=== PATIENT | male | born 1995 | race Caucasian/White ===

== ENCOUNTER 2018-07-15 11:57 | Inpatient (IN) ==
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
[2018-07-15 12:48] LABS: Baso % (Auto) 0.2 % (0.0-2.0); Eos % (Auto) 0.1 % (0.0-4.0); Hematocrit 49.8 % (39.0-51.0); Hemoglobin 16.8 gm/dL (13.0-17.0); Lymph # (Auto) 1.5 th/mm3 (1.0-4.8); Lymph % (Auto) 11.3 % (9.0-44.0); Mean Corpuscular HGB Conc 33.8 % (32.0-36.0); Mean Corpuscular Hemoglobin 30.5 pg (27.0-34.0); Mean Corpuscular Volume 90.3 fL (80.0-100.0); Mean Platelet Volume 7.8 fL (7.0-11.0); Mono # (Auto) 1.3 th/mm3 (0.0-0.9); Mono % (Auto) 9.7 % (0.0-8.0); Neut # (Auto) 10.7 th/mm3 (1.8-7.7); Neut % (Auto) 78.7 % (16.0-70.0); Platelet Count 270 th/mm3 (150-450); Red Blood Count 5.51 mil/mm3 (4.50-5.90); Red Cell Distribution Width 12.7 % (11.6-17.2); White Blood Count 13.6 th/mm3 (4.0-11.0)
--- NOTE | 2018-07-15 12:52 | XR ---
EXAM DATE: 07/15/2018 12:43 PM EDT AGE/SEX: 22 years / Male INDICATIONS: Right elbow pain. Posterior pain and abrasions. Patient fell today. CLINICAL DATA: This is the patient's initial encounter. Patient reports that signs and symptoms have been present for 1 day and indicates a pain score of 3/10. MEDICAL/SURGICAL HISTORY: None. None. COMPARISON: No prior exams available for comparison. FINDINGS: Bony structures are intact and in normal alignment. Joints are intact without dislocation or signifi cant arthropathy. Osseous density is normal. Soft tissues are swollen over the proximal ulna. No ra diopaque foreign bodies seen. CONCLUSION: No acute bony abnormality. Soft tissue swelling over the proximal ulna. Electronically signed by: Rafa Summers MD 07/15/2018 12:50 PM EDT
[2018-07-15 13:17] LABS: Alanine Aminotransferase 93 U/L (9-52); Albumin 4.9 g/dL (3.4-5.0); Anion Gap 10 meq/L (5-15); Aspartate Aminotransferase 255 U/L (15-39); Blood Urea Nitrogen 8 mg/dL (7-18); Calcium 9.7 mg/dL (8.5-10.1); Carbon Dioxide 26.8 meq/L (21.0-32.0); Chloride 101 meq/L (98-107); Glomerular Filtration Rate Greater Than 89 mL/min (>89); Glucose,Random 96 mg/dL (74-106); Potassium 3.6 meq/L (3.5-5.1); Sodium 138 meq/L (136-145)
[2018-07-15 13:26] LABS: Alkaline Phosphatase 62 U/L (45-117); Thyroid Stimulating Hormone 0.396 uIU/mL (0.358-3.740)
[2018-07-15 18:04] LABS: Amphetamine Screen,Urine Neg (Neg); Barbiturate Screen,Urine Neg (Neg); Cannabinoid Screen,Urine Pos (Neg); Cocaine Screen,Urine Neg (Neg)
[2018-07-15 18:05] LABS: Bilirubin,Urine Negative (Negative); Clarity,Urine Clear (Clear); Color,Urine Yellow (Yellw/Straw); Glucose,Urine (UA) Negative (Negative); Leukocyte Esterase,Urine Negative (Negative); Mucus,Urine Few /lpf (Occasional); Nitrite,Urine Negative (Negative); Specific Gravity,Urine 1.005 (1.002-1.035)
[2018-07-15 18:10] LABS: Opiate Screen,Urine Neg (Neg)
[2018-07-15] MEDS ORDERED: Aluminum/Magnesium/Simethacone Susp 30 ML UDC PO PRN (18:29)
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
[2018-07-15] MEDS ORDERED: Haloperidol Inj 5 MG/ML Ampul IM ONE (19:30)
[2018-07-15] MEDS ORDERED: Haloperidol Inj 5 MG/ML Ampul ONE (19:40)
[2018-07-16 10:43] LABS: Calcium 9.6 mg/dL (8.5-10.1); Carbon Dioxide 30.4 meq/L (21.0-32.0); Potassium 3.5 meq/L (3.5-5.1)
[2018-07-16 10:46] LABS: Chol/HDL Ratio 2.22 Ratio; HDL Cholesterol 59.2 mg/dL (40.0-60.0)
[2018-07-16] MEDS ORDERED: Aluminum/Magnesium/Simethacone Susp 30 ML UDC PO PRN ×2 (12:12→12:31)
[2018-07-16] MEDS ORDERED: Acetaminophen 325 MG Tablet PO PRN (12:12)
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
[2018-07-16] MEDS: Haloperidol 5 MG Tablet PO SCH ×2 (18:29→22:03)
[2018-07-17] MEDS: Haloperidol 5 MG Tablet PO SCH ×2 (08:22→21:17)
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
[2018-07-18] MEDS: Haloperidol 5 MG Tablet PO SCH (08:20)
--- NOTE | 2018-07-18 11:14 | P.PNPSY ---
Subjective Remarks: Pt seen and discussed with staff. He has been compliant with medications. He expressed remorse, but little insight into substance abuse. No overt psychosis or internal preoccupation. He admits to heavy substance use and experimentation. During rounds, pt experiences a dystonic reaction (tongue protrusion). He was given cogentin 2mg IM which relieved symptoms without recurrence. Mental Status Examination Appearance: Appropriate Consciousness: Alert Orientation: x4 Motor Activity: Normal gait Speech: Unremarkable, Hesitant Language: Adequate (For the most part) Fund of Knowledge: Adequate Attention and Concentration: Easily distracted Memory: Unremarkable Mood: Other (Euthymic to mildly dysphoric and anxious) Affect: Other (Slight increased range and intensity) Thought Process & Associations: Disorganized (At times) Thought Content: Bizarre thinking, Thought blocking, Racing thoughts (Decreased) Hallucination Type: Auditory Delusion Type: Paranoid Suicidal Ideation: No Suicidal Plan: No Suicidal Intention: No Homicidal Ideation: No Homicidal Plan: No Homicidal Intention: No Insight: Fair Judgment: Poor Assessment and Plan - Assessment (1) Brief psychotic disorder Code(s): F23 - Brief psychotic disorder Status: Acute (2) Acute dystonic reaction due to drugs Code(s): G24.02 - Drug induced acute dystonia Status: Resolved - Plan Plan: Haldol discontinued. Psychosis most likely substance induced and now pt is cleared. Will monitor carefully for recurrence. Cogentin prn available in case dystonia recurs. Justification for Continued Inpatient Stay: complicating medical conditions requiring monitoring Request Healthcare Surrogate/Guardian Advocate?: No
[2018-07-18] MEDS ORDERED: Benztropine Inj 2 MG/2 ML Ampul ONE (11:45)
[2018-07-18] MEDS ORDERED: Benztropine Inj 2 MG/2 ML Ampul IM ONE ×2 (11:50→12:01)
[2018-07-19] MEDS ORDERED: Haloperidol 5 MG Tablet PO SCH (14:45)
--- NOTE | 2018-07-19 15:20 | P.PNPSY ---
Subjective Remarks: Patient is seen in his room with nurse Patria, chart reviewed, patient compliant medication. Patient is showing no further signs of dysthymic reactions. He is alert oriented calm cooperative no shows some insight into possibility of this being substance related. He is willing to refrain from the use of marijuana. This talked with his family they feel he is improving also. For now continue observation patient continues to do well with next 24 hours consider discharge tomorrow Review of Systems All other systems reviewed negative except as stated in HPI Mental Status Examination Appearance: Appropriate Consciousness: Alert Orientation: x4 Motor Activity: Normal gait Speech: Unremarkable, Hesitant Language: Adequate (For the most part) Fund of Knowledge: Adequate Attention and Concentration: Easily distracted Memory: Unremarkable Mood: Other (Euthymic to mildly dysphoric and anxious) Affect: Other (Slight increased range and intensity) Thought Process & Associations: Disorganized (At times) Thought Content: Bizarre thinking, Thought blocking, Racing thoughts (Decreased) Hallucination Type: Auditory Delusion Type: Paranoid Suicidal Ideation: No Suicidal Plan: No Suicidal Intention: No Homicidal Ideation: No Homicidal Plan: No Homicidal Intention: No Insight: Fair Judgment: Poor Assessment and Plan - Assessment (1) Brief psychotic disorder Code(s): F23 - Brief psychotic disorder Status: Acute (2) Acute dystonic reaction due to drugs Code(s): G24.02 - Drug induced acute dystonia Status: Resolved - Plan Plan: Patient continues to do well psychosis is essentially resolved is calm cooperative deny suicidality homicidality voices or visions Justification for Continued Inpatient Stay: Consider discharge tomorrow family Discharge Planning: Return home with family Request Healthcare Surrogate/Guardian Advocate?: No
--- NOTE | 2018-07-20 13:03 | P.PNPSY ---
Subjective Remarks: Patient seen in his room with nurse Patria, chart reviewed, patient somewhat dull and restricted to the. Discussed patient with nurse. She states she did get history from patient's mother of history of mood lability irritability mild psychosis going back to mid teens with noncompliance medication recommendations. Did discuss this with the patient and also with his need for some medication help control his moods. Patient somewhat reluctant to do this but does acknowledge the need for we will start him on Seroquel 50 mg 8 AM and 4 PM and 100 mg at at bedtime Review of Systems All other systems reviewed negative except as stated in HPI Mental Status Examination Appearance: Appropriate Consciousness: Alert Orientation: x4 Motor Activity: Normal gait Speech: Unremarkable, Hesitant Language: Adequate (For the most part) Fund of Knowledge: Adequate Attention and Concentration: Easily distracted Memory: Unremarkable Mood: Other (Euthymic to mildly dysphoric and anxious) Affect: Other (Slight increased range and intensity) Thought Process & Associations: Disorganized (At times) Thought Content: Bizarre thinking, Thought blocking, Racing thoughts (Decreased) Hallucination Type: Auditory Delusion Type: Paranoid Suicidal Ideation: No Suicidal Plan: No Suicidal Intention: No Homicidal Ideation: No Homicidal Plan: No Homicidal Intention: No Insight: Fair Judgment: Poor Assessment and Plan - Assessment (1) Brief psychotic disorder Code(s): F23 - Brief psychotic disorder Status: Acute (2) Acute dystonic reaction due to drugs Code(s): G24.02 - Drug induced acute dystonia Status: Resolved - Plan Plan: Patient remained psychotic somewhat paranoid but willing to take medication at this time Justification for Continued Inpatient Stay: At this time patient would decompensate a place to a lower level of care Discharge Planning: Hopefully to return home Request Healthcare Surrogate/Guardian Advocate?: No
[2018-07-20] MEDS: QUEtiapine 25 MG Tablet PO SCH ×2 (14:08→15:57)
[2018-07-20] MEDS ORDERED: QUEtiapine 25 MG Tablet PO SCH (21:00)
[2018-07-21] MEDS: QUEtiapine 25 MG Tablet PO SCH (08:29)
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
== END 2018-07-21 15:51 | disposition home or self-care (01) ==
LOC: NEPJ 11:57 → NEDA 18:30 → H270 19:20
PROVIDERS: ADMIT Psychiatry & Neurology Psychiatry; ATTEND Psychiatry & Neurology Psychiatry